=== PATIENT | female | born 1950 | race Two or more races ===

== ENCOUNTER 2022-02-18 00:14 | Inpatient (IN) | payer OTHER ==
[~2022-02-18] VITALS: Ht 170.2 cm; Wt 83.5 kg
[2022-02-18] MEDS ORDERED: LOSARTAN POTASS50 MG (00:23)
[2022-02-18] MEDS ORDERED: NORVASC2.5 MG (00:23)
[2022-02-18] MEDS ORDERED: BUPROPION XL150 MG (00:23)
[2022-02-18] MEDS ORDERED: PROPAFENONE HC150 MG (00:23)
[2022-02-18] MEDS ORDERED: CLONAZEPAM2 MG (00:24)
[2022-02-18] MEDS ORDERED: NAPROXEN500 MG (00:24)
[2022-02-18] MEDS ORDERED: CHILDREN'S ASPI81 MG (00:24)
[2022-02-20] MEDS ORDERED: MELATONIN-LEMO1 EACH (10:50)
[2022-02-20] MEDS ORDERED: MILK OF MA400 MG/5 M (10:50)
[2022-02-20] MEDS ORDERED: ABATINEX680 MG (10:50)
[2022-02-20] MEDS ORDERED: BUPROPION XL150 MG (10:50)
[2022-02-20] MEDS ORDERED: IBANDRONATE SO150 MG (10:50)
== END 2022-02-21 16:28 | disposition home or self-care (01) | DRG 305 ==
LOC: ER 00:14 → SURG 11:45 → SEC-K 11:45 → SURG 15:28
PROVIDERS: ADMIT Internal Medicine; ATTEND Internal Medicine
PROC: B246YZZ Ultrasonography of Right and Left Heart using Other Contrast (ICD-10-PCS; principal; 2022-02-18)
PROC: 4A12X4Z Monitoring of Cardiac Electrical Activity, External Approach (ICD-10-PCS; 2022-02-19)
PROC: C2261ZZ Tomographic (Tomo) Nuclear Medicine Imaging of Right and Left Heart using Technetium 99m (Tc-99m) (ICD-10-PCS; 2022-02-20)
DX: I16.0 Hypertensive urgency (principal); E63.9 Nutritional deficiency, unspecified; Z20.822 Contact with and (suspected) exposure to COVID-19